=== PATIENT | male | born 1985 | race Caucasian/White ===

== ENCOUNTER 2020-12-27 17:01 | Emergency (ER) | payer OTHER ==
--- NOTE | 2020-12-27 17:03 | ERPHSYRPT ---
- History of Present Illness Time Seen by Provider: 12/27/20 17:03 Source: patient, family Exam Limitations: no limitations Physician History: This is a 35-year-old white male who has dental infection and right upper molar dental pain. Patient was not seen by his dentist today but the dentist did call him in Keflex antibiotics. He just started his antibiotics today. [id number] Tylenol and ibuprofen is not helping his pain much. He is here for help with pain control. Timing/Duration: days (A few) Severity: moderate Prearrival Treatment: over the counter meds, prescription meds Associated Symptoms: tooth pain Allergies/Adverse Reactions: Penicillins Allergy (Verified 12/27/20 17:16) Home Medications: Amlodipine Besylate 5 mg [Norvasc 5 mg] 5 mg PO DAILY 12/27/20 [History] Cephalexin Mh 500 mg [Keflex 500 mg] 500 mg PO Q8H PRN PRN 12/27/20 [History] Fenofibrate 150 mg PO DAILY 12/27/20 [History] Travel Risk - International Travel Have you traveled outside of the country in past 3 weeks: No - Coronavirus Screening Are you exhibiting any of the following symptoms?: No Close contact with a COVID-19 positive Pt in past 14-21 Days: No - Review of Systems Constitutional: No Symptoms Eyes: No Symptoms Ears, Nose, & Throat: Other (Dental pain) Respiratory: No Symptoms Cardiac: No Symptoms Abdominal/Gastrointestinal: No Symptoms Genitourinary Symptoms: No Symptoms Musculoskeletal: No Symptoms Skin: No Symptoms Neurological: No Symptoms Psychological: No Symptoms Endocrine: No Symptoms Hematologic/Lymphatic: No Symptoms Immunological/Allergic: No Symptoms All Other Systems: Reviewed and Negative - Past Medical History Pertinent Past Medical History: Yes - Past Surgical History Past Surgical History: Yes - Nursing Vital Signs Nursing Vital Signs: Initial Vital Signs Temperature 97.0 F 12/27/20 17:05 Pulse Rate 99 H 12/27/20 17:05 Blood Pressure 172/110 12/27/20 17:05 O2 Sat by Pulse Oximetry 97 12/27/20 17:05 Pain Scale Pain Intensity 10 - Physical Exam General Appearance: no apparent distress, alert, anxiety Eye Exam: bilateral eye: normal inspection, PERRL, EOMI Ear Exam: bilateral ear: auricle normal Nasal Exam: normal inspection Throat Exam: pharynx normal, dental tenderness (Especially right upper posterior molars), moist mucus membranes Neck Exam: normal inspection, non-tender, supple, full range of motion Cardiovascular/Respiratory Exam: chest non-tender, normal breath sounds, no respiratory distress Abdominal Exam: non-tender Neurologic Exam: alert, oriented x 3, cooperative, 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 Follow-up with dentist and or primary care physician for further pain management. Stop your acetaminophen medication until you complete your [place] medication. May use ibuprofen 600 mg orally with food 3 times a day for the next 4 days. Follow-up with your dentist for definitive care. Prescriptions: Hydrocodone/APAP 5/325 [[place] 5/325 mg] 1 each PO Q8H PRN PRN #3 tablet MDD 3 PRN Reason: Pain
[2020-12-27 17:15] VITALS: BP 172/110; PULSE 99; O2SAT 97
[2020-12-27] MEDS ORDERED: NORCO 5/325 MG PO ONE (17:19)
[2020-12-27] MEDS ORDERED: NORCO 5/325 MG ONE (17:23)
== END 2020-12-27 17:33 | disposition home or self-care (01) ==
LOC: ED 17:01
DX: K08.89 Other specified disorders of teeth and supporting structures (principal)
CPT/HCPCS: 99283; A9270-GY

== ENCOUNTER 2022-05-22 09:46 | Emergency (ER) | payer OTHER ==
[2022-05-22] MEDS ORDERED: XYLOCAINE VISCOUS 2% 15 ML CUP PO ONE (09:54)
[2022-05-22 09:56] VITALS: BP 188/130; PULSE 91; O2SAT 99
[2022-05-22] MEDS ORDERED: XYLOCAINE VISCOUS 2% 15 ML CUP ONE (09:56)
--- NOTE | 2022-05-22 10:01 | ERPHSYRPT ---
- History of Present Illness Time Seen by Provider: 05/22/22 09:56 Source: patient Exam Limitations: no limitations Patient Subjective Stated Complaint: Dental pain Triage Nursing Assessment: Patient ambulated back to ED and transferred self to bed. Patient A+O X3. Patient's skin pink, warm and dry. Patient complains of dental pain. Patient has appointment with Dentist on May 29 and was told if pain got too bad to come to ER. Patient complains of pain to right upper back tooth. Right upper back tooth noted to be decayed with red and swollen gums. Patient complains of pain 05/14. Physician History: Patient is a 36-year-old white male with complaint of dental pain. He complains of pain in the right upper molar. He has appointment with [facility] on the of this month. He has not been given any antibiotics topical lidocaine etc. he has extremely poor dentition. Timing/Duration: gradual onset Severity: severe ENT Location: dental Prearrival Treatment: no prearrival treatment Modifying Factors: Improves With: nothing Associated Symptoms: facial pain/swelling, jaw pain, tooth pain Allergies/Adverse Reactions: Penicillins Allergy (Verified 05/22/22 09:50) benzonatate [From [employer] Perles] Adverse Reaction (Severe, Verified 05/22/22 09:50) extreme anxiousness Hx Tetanus, Diphtheria Vaccination/Date Given: Yes Hx Influenza Vaccination/Date Given: No Hx Pneumococcal Vaccination/Date Given: No Immunizations Up to Date: Yes Travel Risk - International Travel Have you traveled outside of the country in past 3 weeks: No - Coronavirus Screening Are you exhibiting any of the following symptoms?: No Close contact with a COVID-19 positive Pt in past 14-21 Days: No - Vaccine Status Have you recieved a Covid-19 vaccination: No - Review of Systems Constitutional: No Fever, No Chills Eyes: No Symptoms Ears, Nose, & Throat: No Symptoms, Loose Teeth Respiratory: No Cough, No Dyspnea Cardiac: No Chest Pain, No Edema, No Syncope Abdominal/Gastrointestinal: No Abdominal Pain, No Nausea, No Vomiting, No Diarrhea Genitourinary Symptoms: No Dysuria Musculoskeletal: No Back Pain, No Neck Pain Skin: No Rash Neurological: No Dizziness, No Focal Weakness, No Sensory Changes Psychological: No Symptoms Endocrine: No Symptoms All Other Systems: Reviewed and Negative - Past Medical History Pertinent Past Medical History: Yes Neurological History: No Pertinent History ENT History: No Pertinent History Cardiac History: High Cholesterol, Hypertension Respiratory History: Bronchitis Endocrine Medical History: No Pertinent History Musculoskeletal History: Fractures GI Medical History: No Pertinent History History: No Pertinent History Psycho-Social History: Anxiety, Depression, Other Male Reproductive Disorders: No Pertinent History Other Medical History: 7 fx vertebrea in back 5 in neck, broke right hand 3-4 times, broken ribs - Past Surgical History Past Surgical History: Yes Neuro Surgical History: No Pertinent History Cardiac: No Pertinent History Respiratory: No Pertinent History Gastrointestinal: No Pertinent History Genitourinary: No Pertinent History Musculoskeletal: No Pertinent History Male Surgical History: No Pertinent History - Social History Smoking Status: Current every day smoker How long have you smoked: years Exposure to second hand smoke: Yes Drug Use: none Patient Lives Alone: No - Nursing Vital Signs Nursing Vital Signs: Initial Vital Signs Temperature 97.2 F 05/22/22 09:50 Pulse Rate 91 H 05/22/22 09:50 Respiratory Rate 18 05/22/22 09:50 Blood Pressure 188/130 05/22/22 09:50 O2 Sat by Pulse Oximetry 99 05/22/22 09:50 Pain Scale Pain Intensity 10 - Physical Exam General Appearance: no apparent distress, alert Eye Exam: bilateral eye: PERRL, EOMI Ear Exam: bilateral ear: auricle normal, canal normal, TM normal Nasal Exam: normal inspection Throat Exam: pharynx normal, dental tenderness (There is extensive severe josue s. The tender tooth today is a right maxillary second molar which is also decayed. There is abscess present.), moist mucus membranes, No tonsillar exudate Neck Exam: supple Cardiovascular/Respiratory Exam: normal breath sounds, regular rate/rhythm Abdominal Exam: non-tender, soft Neurologic Exam: alert, oriented x 3, sensation nml, No motor deficits Skin Exam: normal color, warm, dry SpO2: 99 - Course Nursing assessment & vital signs reviewed: Yes Ordered Tests: Medication Summary Discontinued Medications Generic Name Dose Route Start Last Admin Trade Name Freq PRN Reason Stop Dose Admin Lidocaine HCl 15 ml 05/22/22 09:54 Lidocaine Hcl 2% Viscous 15 Ml Udcup PO 05/22/22 09:55 STAT ONE - Progress Progress: improved - Departure Departure Disposition: Home Clinical Impression: Dental abscess Condition: Stable Critical Care Time: No Referrals: BRAYDEN QUINONES [Primary Care Provider] - Follow up/PCP as directed Instructions: Tooth Abscess (DC) Prescriptions: Hydrocodone/Acetaminophen [Hydrocodone-Acetamin 5-325 mg] 1 tab PO Q6HPRN PRN 3 Days #12 tablet MDD 4 PRN Reason: Pain clindamycin HCL [Cleocin HCl] 300 mg PO Q8H 7 Days #21 cap
== END 2022-05-22 10:15 | disposition home or self-care (01) ==
LOC: ED 09:46
DX: K04.7 Periapical abscess without sinus (principal)
CPT/HCPCS: 99281; A9270-GY

== ENCOUNTER 2022-08-13 00:10 | Emergency (ER) | payer OTHER ==
[2022-08-13 00:20] VITALS: O2SAT 98
[2022-08-13] MEDS ORDERED: TORAdol 30 mg Injection IM ONE (00:36)
[2022-08-13] MEDS ORDERED: TORAdol 30 mg Injection ONE (00:42)
--- NOTE | 2022-08-13 00:47 | ERPHSYRPT ---
- History of Present Illness Source: patient Exam Limitations: no limitations Patient Subjective Stated Complaint: I punched a wall and I know my hand is broken. Triage Nursing Assessment: pt ambulated into ER without diff, pt alert and oriented x4, pleasant and cooperative. Pt came home this evening and his dog had killed his other dog. Out of anger, pt hit a wall. Rt hand is swollen, pt unable to straighten out ring finger. Radial pulse strong and present. Pt c/o tenderness, sharp, throbbing pain to rt wrist. Physician History: 37 yo wm upset about the of his dog after a fight w his other dog presents w R hand pain after hitting a wall in anger. Pt is R handed and denies other injuries. Pain is moderate to severe and worse w movement. Occurred: just prior to arrival Method of Injury: direct blow (Hand vs wall) Quality: constant Severity of Pain-Max: severe Severity of Pain-Current: severe Extremities Pain Location: hand: right Modifying Factors: Improves With: movement Associated Symptoms: none Allergies/Adverse Reactions: Penicillins Allergy (Verified 08/13/22 00:26) benzonatate [From [employer]] Adverse Reaction (Severe, Verified 08/13/22 00:26) extreme anxiousness Home Medications: Amlodipine Besylate 5 mg [Norvasc 5 mg] 5 mg PO DAILY 08/13/22 [History] Carvedilol [Coreg ] 1 tab PO DAILY 08/13/22 [History] Hx Tetanus, Diphtheria Vaccination/Date Given: Yes Hx Influenza Vaccination/Date Given: No Hx Pneumococcal Vaccination/Date Given: No Immunizations Up to Date: Yes Travel Risk - International Travel Have you traveled outside of the country in past 3 weeks: No - Coronavirus Screening Are you exhibiting any of the following symptoms?: No Close contact with a COVID-19 positive Pt in past 14-21 Days: No - Vaccine Status Have you recieved a Covid-19 vaccination: No - Review of Systems Constitutional: No Symptoms Eyes: No Symptoms Ears, Nose, & Throat: No Symptoms Respiratory: No Symptoms Cardiac: No Symptoms Abdominal/Gastrointestinal: No Symptoms Genitourinary Symptoms: No Symptoms Skin: No Symptoms Neurological: No Symptoms Psychological: No Symptoms Endocrine: No Symptoms Hematologic/Lymphatic: No Symptoms Immunological/Allergic: No Symptoms - Past Medical History Pertinent Past Medical History: Yes Neurological History: No Pertinent History ENT History: No Pertinent History Cardiac History: High Cholesterol, Hypertension Respiratory History: Bronchitis Endocrine Medical History: No Pertinent History Musculoskeletal History: Fractures GI Medical History: No Pertinent History History: No Pertinent History Psycho-Social History: Anxiety, Depression, Other Male Reproductive Disorders: No Pertinent History Other Medical History: 7 fx vertebrea in back 5 in neck, broke right hand 3-4 times, broken ribs - Past Surgical History Past Surgical History: Yes Neuro Surgical History: No Pertinent History Cardiac: No Pertinent History Respiratory: No Pertinent History Gastrointestinal: No Pertinent History Genitourinary: No Pertinent History Musculoskeletal: No Pertinent History Male Surgical History: No Pertinent History - Social History Smoking Status: Current every day smoker How long have you smoked: 16 years Exposure to second hand smoke: Yes Drug Use: none Patient Lives Alone: No - Nursing Vital Signs Nursing Vital Signs: Initial Vital Signs Temperature 97.6 F 08/13/22 00:17 Pulse Rate 104 H 08/13/22 00:17 Respiratory Rate 20 08/13/22 00:17 Blood Pressure 169/113 08/13/22 00:17 O2 Sat by Pulse Oximetry 98 08/13/22 00:17 Pain Scale Pain Intensity 8 Hypertensive - Physical Exam General Appearance: no apparent distress Eyes, Ears, Nose, Throat Exam: normal ENT inspection, TMs normal, pharynx normal, moist mucous membranes Neck Exam: normal inspection, non-tender, supple, full range of motion, No Brudzinski, No Kernig's, No meningismus Cardiovascular/Respiratory Exam: chest non-tender, normal breath sounds, regular rate/rhythm, heart sounds normal Abdominal Exam: non-tender, soft Back Exam: normal inspection, normal range of motion, CVA tenderness, No vertebral tenderness Shoulder Exam: normal inspection, non-tender, no evidence of injury Elbow/Forearm Exam: normal inspection, non-tender, no evidence of injury Wrist Exam: normal inspection, non-tender, no evidence of injury Hand Exam: bone tenderness (R hand w marked edema and TTP over the 4th and 5th metacarpal/Good radial pulse, distal sensation, and capillary return) DTR - Upper Extremity Exam: bicep (R): 2+, bicep (L): 2+ Neuro/Tendon Exam: normal sensation, normal motor functions, normal tendon functions, responds to pain, No motor deficit, No sensory deficit Mental Status Exam: alert, oriented x 3, cooperative Skin Exam: normal color, warm, dry, No rash SpO2 Interpretation: normal SpO2: 98 O2 Delivery: Room Air Procedures - Splinting Location of Splint: Right, Hand, Wrist Type of Splint: Orthoglass Short Arm Splint Splint Applied By: ED Physician Pre-Proc Neuro Vasc Exam: normal Post-Proc Neuro Vasc Exam: neurovascular intact - Course Nursing assessment & vital signs reviewed: Yes - Radiology Exams Hand X-ray Interpretation: Interpreted by me (R 4th distal metacarpal fx/R 5th proximal metacarpal fx) Ordered Tests: Active Orders 24 hr Category Date Time Status Sling Application STAT Care 08/13/22 01:10 Completed HAND (2 VIEW) Stat Exams 08/13/22 00:20 Taken Medication Summary Discontinued Medications Generic Name Dose Route Start Last Admin Trade Name Freq PRN Reason Stop Dose Admin Hydrocodone Bitart/Acetaminophen 2 tab 08/13/22 01:10 08/13/22 01:15 Hydrocodone/Apap 5/325 1 Tab Tablet PO 08/13/22 01:11 2 tab SENT HOME W/ PATIENT ONE Administration Hydrocodone Bitart/Acetaminophen Confirm 08/13/22 01:13 Hydrocodone/Apap 5/325 1 Tab Tablet Administered 08/13/22 01:14 Dose 2 tab .ROUTE .STK-MED ONE Ketorolac Tromethamine 30 mg 08/13/22 00:36 08/13/22 00:43 Ketorolac Tromethamine 30 Mg/Ml Inj IM 08/13/22 00:37 30 mg STAT ONE Administration Ketorolac Tromethamine Confirm 08/13/22 00:42 Ketorolac Tromethamine 30 Mg/Ml Inj Administered 08/13/22 00:43 Dose 30 mg .ROUTE .STK-MED ONE - Progress Progress: improved Progress Note: 08/13/22 00:57 30mg IM Toradol 08/13/22 01:11 R hand/wrist orthoglass splint per physician/NVI Sling RUE per nursing/NVI 08/13/22 03:40 Pt's BP decreasing wo treatment 08/13/22 03:[address] Gonsalez's contact info and will call in AM Counseled pt/family regarding: diagnosis, need for follow-up, rad results - Departure Departure Disposition: Home Clinical Impression: Metacarpal bone fracture Condition: Stable Critical Care Time: No Referrals: BRAYDEN QUINONES [Primary Care Provider] - Follow up/PCP as directed Instructions: Hand Fracture (DC), Boxer's Fracture (DC) Additional Instructions: Ice for 12-24 hours Pain meds as needed Call Dr. Gonsalez in AM [phone] [facility] [place] [id number] Prescriptions: Hydrocodone/Acetaminophen [Hydrocodone-Acetamin 5-325 mg] 1 each PO Q4HPRN PRN #6 tablet MDD 4 tabs PRN Reason: Pain
[2022-08-13] MEDS ORDERED: NORCO 5/325 MG PO ONE (01:10)
[2022-08-13] MEDS ORDERED: NORCO 5/325 MG ONE (01:13)
[2022-08-13 01:16] VITALS: BP 161/108; PULSE 95
--- NOTE | 2022-08-13 08:44 | XRAY ---
Indication: Pain following trauma. Comparison: June 11, 2011 3 view right hand demonstrates new mildly displaced comminuted fracture base 5th and head 4th metacarpals with soft tissue swelling. 4th finger is flexed. No other bony, articular, or soft tissue abnormalities.
== END 2022-08-13 01:22 | disposition home or self-care (01) ==
LOC: ED 00:10
DX: S62.394A Other fracture of fourth metacarpal bone, right hand, initial encounter for closed fracture (principal); S62.316A Displaced fracture of base of fifth metacarpal bone, right hand, initial encounter for closed fracture; W22.01XA Walked into wall, initial encounter; M79.641 Pain in right hand; E78.5 Hyperlipidemia, unspecified; I10 Essential (primary) hypertension; Z79.899 Other long term (current) drug therapy; Z79.891 Long term (current) use of opiate analgesic; Z28.310 Unvaccinated for COVID-19; Z72.0 Tobacco use
CPT/HCPCS: 29125; 73120; 96372; 99283; J1885; A9270-GY

== ENCOUNTER 2023-02-09 22:00 | Emergency (ER) | payer OTHER ==
--- NOTE | 2023-02-09 22:22 | ERPHSYRPT ---
- History of Present Illness Time Seen by Provider: 02/09/23 22:14 Source: patient Exam Limitations: no limitations Physician History: 37-year-old male this emergency room with left-sided ankle and knee pain after a fall from a ladder while at work around 430 this evening. Patient had to finish his shift and drive home before seeking medical attention. He has been able to walk but has been extremely painful. He denies previous injury to the knee or ankle. Method of Injury: fell Occurred: this evening (438) Quality: constant, sharpness, throbbing Severity of Pain-Max: severe Severity of Pain-Current: severe Lower Extremities Pain: knee: left, ankle: left Modifying Factors: Improves With: rest. Worsens With: movement Associated Symptoms: none Allergies/Adverse Reactions: Penicillins Allergy (Verified 02/09/23 22:10) benzonatate [From [employer]] Adverse Reaction (Severe, Verified 02/09/23 22:10) extreme anxiousness Home Medications: Amlodipine Besylate 5 mg [Norvasc 5 mg] 5 mg PO HS 08/13/22 [History] Carvedilol [Coreg ] 1 tab PO DAILY 08/13/22 [History] Hx Tetanus, Diphtheria Vaccination/Date Given: Yes Hx Influenza Vaccination/Date Given: No Hx Pneumococcal Vaccination/Date Given: No Travel Risk - Vaccine Status Have you recieved a Covid-19 vaccination: No - Review of Systems Constitutional: No Symptoms Eyes: No Symptoms Ears, Nose, & Throat: No Symptoms Respiratory: No Symptoms Cardiac: No Symptoms Abdominal/Gastrointestinal: No Symptoms Genitourinary Symptoms: No Symptoms Musculoskeletal: Fall, Injury, Joint Pain (left knee, ankle), Joint Swelling, No Deformity Skin: No Symptoms Neurological: No Symptoms Psychological: No Symptoms Endocrine: No Symptoms Hematologic/Lymphatic: No Symptoms Immunological/Allergic: No Symptoms All Other Systems: Reviewed and Negative - Past Medical History Pertinent Past Medical History: Yes Neurological History: No Pertinent History ENT History: No Pertinent History Cardiac History: High Cholesterol, Hypertension Respiratory History: Bronchitis Endocrine Medical History: No Pertinent History Musculoskeletal History: Fractures GI Medical History: No Pertinent History History: No Pertinent History Psycho-Social History: Anxiety, Depression, Other Male Reproductive Disorders: No Pertinent History Other Medical History: 7 fx vertebrea in back 5 in neck, broke right hand 3-4 times, broken ribs - Past Surgical History Past Surgical History: Yes Neuro Surgical History: No Pertinent History Cardiac: No Pertinent History Respiratory: No Pertinent History Gastrointestinal: No Pertinent History Genitourinary: No Pertinent History Musculoskeletal: No Pertinent History Male Surgical History: No Pertinent History - Social History Smoking Status: Current every day smoker How long have you smoked: 16 years Exposure to second hand smoke: Yes Drug Use: none Patient Lives Alone: No - Nursing Vital Signs Nursing Vital Signs: Initial Vital Signs Temperature 97.7 F 02/09/23 22:11 Pulse Rate 99 H 02/09/23 22:11 Respiratory Rate 20 02/09/23 22:11 Blood Pressure 154/109 02/09/23 22:11 O2 Sat by Pulse Oximetry 98 02/09/23 22:11 Pain Scale Pain Intensity 9 - Physical Exam General Appearance: mild distress Knees Exam: left knee: no evidence of injury, pain (medial joint line, patella), soft tissue tenderness, swelling Ankle Exam: left ankle: bone tenderness, limited range of motion, pain, soft t issue tenderness, swelling, other (on exam felt ankle joint reduce) Foot Exam: left foot: non-tender, normal inspection, normal range of motion, no evidence of injury Neuro/Tendon Exam: normal sensation Mental Status Exam: alert, oriented x 3, cooperative Skin Exam: normal color, warm, dry SpO2 Interpretation: normal O2 Delivery: Room Air - Course Nursing assessment & vital signs reviewed: Yes - Radiology Exams Left Hip X-ray Interpretation: Interpreted by me, Negative Left Knee X-ray Interpretation: Interpreted by me, No Fracture, Other (effusion) Left Ankle X-ray Interpretation: Interpreted by me, No Fracture Ordered Tests: Active Orders 24 hr Category Date Time Status Cold Application STAT Care 02/09/23 22:12 Active ANKLE (3 VIEWS) Stat Exams 02/09/23 22:12 Taken HIP UNI (2V) INCL PEL IF DONE Stat Exams 02/09/23 22:14 Taken KNEE (3 VIEWS) Stat Exams 02/09/23 22:13 Taken - Progress Progress: improved Progress Note: X-ray of the left ankle showed successful reduction without fracture. X-ray of the left knee showed effusion without fracture or dislocation. X-ray of the left hip and pelvis was negative for fracture. Patient placed in compression sleeve of ankle and knee and given crutches advised to be nonweightbearing and follow-up with Ortho 8 AM on Saturday. 02/09/23 23:17 Counseled pt/family regarding: diagnosis, need for follow-up, rad results Medical Desision Making - Diagnostic Testing Diagnostic test were ordered, analyzed, and reviewed by me: Yes Radiological Interpretation: Interpreted by me - Risk of complications Low Risk: Low risk of morbidity from additional dx testing or treatment - Departure Departure Disposition: Home Clinical Impression: Dislocation of left ankle joint, initial encounter, Left knee pain, Fall from ladder, Internal derangement of left knee Condition: Good Critical Care Time: No Referrals: BRAYDEN QUINONES [Primary Care Provider] - Follow up/PCP as directed Instructions: Ankle Dislocation (DC), Internal Derangement of the Knee Forms: Work/School Release Form
[2023-02-09 23:11] VITALS: BP 131/105; PULSE 94; O2SAT 96
--- NOTE | 2023-02-10 06:55 | XRAY ---
Indication: Pain following fall. Comparison: None AP pelvis and 2 view left hip obtained. No bony, articular, or soft tissue abnormalities.
--- NOTE | 2023-02-10 06:55 | XRAY ---
Indication: Pain following fall. Comparison: None 3 view left hip obtained. No bony, articular, or soft tissue abnormalities.
--- NOTE | 2023-02-10 06:57 | XRAY ---
Indication: Pain following fall. Comparison: September 12, 2021 3 view left ankle again demonstrates mild anterolateral soft tissue swelling and tiny heel spurs. No new bony, articular, or soft tissue abnormalities.
== END 2023-02-09 23:33 | disposition home or self-care (01) ==
LOC: ED 22:00
DX: S93.05XA Dislocation of left ankle joint, initial encounter (principal); M23.92 Unspecified internal derangement of left knee; S89.92XA Unspecified injury of left lower leg, initial encounter; W11.XXXA Fall on and from ladder, initial encounter; Y92.512 Supermarket, store or market as the place of occurrence of the external cause; Y99.0 Civilian activity done for income or pay; M25.562 Pain in left knee; E78.5 Hyperlipidemia, unspecified; I10 Essential (primary) hypertension; Z79.899 Other long term (current) drug therapy; Z72.0 Tobacco use
CPT/HCPCS: 73502; 73562; 73610; 99282

== ENCOUNTER 2023-05-30 21:15 | Emergency (ER) | payer SELFPAY ==
[2023-05-30 21:47] VITALS: RESP 18; TEMP 97.4
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
[2023-05-30 23:35] LABS: Appearance Clear (Clear); Bacteria None Seen /HPF (None Seen); Bilirubin Negative (Negative); Blood Moderate (Negative); Epithelial Cells None Seen /HPF (None Seen); Glucose, Urine Negative (Negative); Hyaline Casts NONE SEEN /LPF (0-2); Ketones Negative (Negative); Leukocyte Esterase Negative (Negative); Nitrite Negative (Negative); Protein,Urine Dip 100 (Negative); WBC 0-2 /HPF (0-5)
[2023-05-30 23:37] LABS: ADD URINE CULTURE? YES (NO)
[2023-05-31 00:03] VITALS: BP 150/104; PULSE 97
[2023-05-31 00:38] VITALS: O2SAT 98
--- NOTE | 2023-05-31 09:12 | XRAY ---
Indication: Ventral hernia. Multiple contiguous axial images obtained through the abdomen and pelvis without contrast. Comparison: None Lung bases clear. Heart not enlarged. Noncontrasted stomach and bowel loops appear nonobstructed with normal appendix. 22 cm fatty hepatomegaly. Gallbladder contracted without gallstones. Left mid kidney demonstrates 8 mm round slightly dense lesion, possible complex/viscous cyst. No free fluid/air. Remaining liver, gallbladder, pancreas, spleen, adrenal glands, kidneys, ureters, bladder, and aorta are unremarkable for noncontrast exam. Osseous structures intact. No ventral or inguinal hernias. Impression: 1. 8 mm left renal slightly dense lesion, possible complex/viscous cyst. Initial renal sonogram could help differentiate solid versus cystic mass. 2. Fatty hepatomegaly. 3. Remaining CT abdomen/pelvis without contrast exam is negative.
== END 2023-05-31 00:45 | disposition home or self-care (01) ==
LOC: ED 21:15
DX: K43.9 Ventral hernia without obstruction or gangrene (principal); R31.9 Hematuria, unspecified; I10 Essential (primary) hypertension; E78.5 Hyperlipidemia, unspecified; Z79.899 Other long term (current) drug therapy; Z72.0 Tobacco use
CPT/HCPCS: 74176; 81001; 87086; 99283

== ENCOUNTER 2024-05-05 17:41 | Emergency (ER) | payer OTHER ==
[2024-05-05 18:52] VITALS: BP 151/106; PULSE 103; TEMP 97; O2SAT 99
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
--- NOTE | 2024-05-06 08:56 | XRAY ---
Indication: Pain. Comparison: None 3 view right elbow obtained. No bony, articular, or soft tissue abnormalities.
== END 2024-05-05 20:06 | disposition home or self-care (01) ==
LOC: ED 17:41
DX: M75.21 Bicipital tendinitis, right shoulder (principal); M25.521 Pain in right elbow; E78.5 Hyperlipidemia, unspecified; I10 Essential (primary) hypertension; Z79.899 Other long term (current) drug therapy; Z72.0 Tobacco use
CPT/HCPCS: 73080; 99282; L3650